=== PATIENT | male | born 1950 | race Caucasian/White ===

== ENCOUNTER 2022-11-16 11:53 | Outpatient (CLI) | payer MEDICARE, BC ==
[2022-11-16 14:58] LABS: BASOPHILS # (AUTO) 0.1 10^3/uL (0.0-0.1); BASOPHILS % (AUTO) 0.7 %; EOSINOPHILS # (AUTO) 0.4 10^3/uL (0.0-0.7); HCT - HEMATOCRIT 49.1 % (42.0-52.0); HGB - HEMOGLOBIN 16.3 g/dL (14.0-18.0); LYMPHOCYTES # (AUTO) 3.3 10^3/uL (1.5-3.5); LYMPHOCYTES % (AUTO) 26.5 %; MEAN CORPUSCULAR HEMOGLOBIN 32.3 pg (27.0-31.0); MEAN CORPUSCULAR HGB CONC 33.2 g/dL (32.0-36.0); MEAN CORPUSCULAR VOLUME 97.2 fL (80.0-94.0); MONOCYTES # (AUTO) 1.2 10^3/uL (0.0-1.0); MONOCYTES % (AUTO) 9.7 %; NEUTROPHILS # (AUTO) 7.5 10^3/uL (1.5-6.6); NEUTROPHILS % (AUTO) 59.6 %; PLT - PLATELET COUNT 320 10^3/uL (130-450); RED BLOOD COUNT 5.05 10^6/uL (4.70-6.10); RED CELL DISTRIBUTION WIDTH 13.6 % (12.0-15.0); WHITE BLOOD COUNT 12.5 x10^3/uL (4.8-10.8)
[2022-11-16 15:27] LABS: ALBUMIN 3.7 g/dL (3.2-5.5); ALBUMIN/GLOBULIN RATIO 0.9 (1.0-2.2); ALKALINE PHOSPHATASE 63 IU/L (42-121); ALT ALANINE AMINOTRANSFERASE 22 IU/L (10-60); AST ASPARTATE AMINOTRANSFERASE 19 IU/L (10-42); BILIRUBIN,TOTAL 1.5 mg/dL (0.2-1.0); BUN - BLOOD UREA NITROGEN 13 mg/dL (6-20); CALCIUM 8.8 mg/dL (8.5-10.3); CARBON DIOXIDE - CO2 28 mmol/L (21-32); CHLORIDE 108 mmol/L (101-111); CHOL/HDL RATIO 3.2 (<5.0); CHOLESTEROL 132 mg/dL; CREATININE 0.7 mg/dL (0.6-1.2); GFR - MDRD 111 (>89); GLUCOSE 95 mg/dL (70-100); HDL CHOLESTEROL 41 mg/dL; LDL CHOLESTEROL,CALCULATED 46 mg/dL; LDL/HDL RATIO 1.1 (<3.6); POTASSIUM 3.9 mmol/L (3.5-5.0); SODIUM 140 mmol/L (135-145); TOTAL PROTEIN 7.9 g/dL (6.7-8.2); TRIGLYCERIDES 225 mg/dL; VLDL CHOLESTEROL 45 mg/dL
== END 2022-11-16 11:54 | disposition home or self-care (01) ==
LOC: LAB.S 11:53
PROVIDERS: ATTEND Nurse Practitioner Acute Care
DX: I10 Essential (primary) hypertension (principal); Z13.228 Encounter for screening for other metabolic disorders; Z13.220 Encounter for screening for lipoid disorders; Z12.5 Encounter for screening for malignant neoplasm of prostate; Z13.0 Encounter for screening for diseases of the blood and blood-forming organs and certain disorders involving the immune mechanism
CPT/HCPCS: 36415; 80053; 80061; 85025; G0103; 83721; 84153

== ENCOUNTER 2022-11-19 11:50 | Outpatient (CLI) | payer MEDICARE, BC ==
[2022-11-19 14:31] LABS: BASOPHILS # (AUTO) 0.1 10^3/uL (0.0-0.1); BASOPHILS % (AUTO) 0.8 %; EOSINOPHILS # (AUTO) 0.2 10^3/uL (0.0-0.7); EOSINOPHILS % (AUTO) 1.9 %; HCT - HEMATOCRIT 48.6 % (42.0-52.0); LYMPHOCYTES # (AUTO) 3.1 10^3/uL (1.5-3.5); MEAN CORPUSCULAR HEMOGLOBIN 31.9 pg (27.0-31.0); MEAN CORPUSCULAR HGB CONC 32.9 g/dL (32.0-36.0); MEAN PLATELET VOLUME 10.1 fL (7.4-11.4); MONOCYTES # (AUTO) 0.8 10^3/uL (0.0-1.0); MONOCYTES % (AUTO) 8.1 %; NEUTROPHILS % (AUTO) 58.8 %; PLT - PLATELET COUNT 313 10^3/uL (130-450); RED BLOOD COUNT 5.01 10^6/uL (4.70-6.10); RED CELL DISTRIBUTION WIDTH 13.5 % (12.0-15.0); WHITE BLOOD COUNT 10.2 x10^3/uL (4.8-10.8)
== END 2022-11-19 11:51 | disposition home or self-care (01) ==
LOC: LAB.S 11:50
PROVIDERS: ATTEND Nurse Practitioner Acute Care
DX: Z13.0 Encounter for screening for diseases of the blood and blood-forming organs and certain disorders involving the immune mechanism (principal)
CPT/HCPCS: 36415; 85025

== ENCOUNTER 2023-12-21 10:00 | Outpatient (CLI) | payer MEDICARE ==
[2023-12-21 15:09] LABS: BASOPHILS # (AUTO) 0.1 10^3/uL (0.0-0.1); BASOPHILS % (AUTO) 0.7 %; EOSINOPHILS # (AUTO) 0.3 10^3/uL (0.0-0.7); EOSINOPHILS % (AUTO) 1.9 %; HCT - HEMATOCRIT 48.8 % (42.0-52.0); HGB - HEMOGLOBIN 15.9 g/dL (14.0-18.0); LYMPHOCYTES # (AUTO) 2.7 10^3/uL (1.5-3.5); LYMPHOCYTES % (AUTO) 19.9 %; MEAN CORPUSCULAR HEMOGLOBIN 32.1 pg (27.0-31.0); MEAN CORPUSCULAR HGB CONC 32.6 g/dL (32.0-36.0); MEAN CORPUSCULAR VOLUME 98.4 fL (80.0-94.0); MONOCYTES # (AUTO) 1.2 10^3/uL (0.0-1.0); MONOCYTES % (AUTO) 8.7 %; NEUTROPHILS # (AUTO) 9.2 10^3/uL (1.5-6.6); NEUTROPHILS % (AUTO) 68.4 %; PLT - PLATELET COUNT 324 10^3/uL (130-450); RED BLOOD COUNT 4.96 10^6/uL (4.70-6.10); RED CELL DISTRIBUTION WIDTH 13.2 % (12.0-15.0); WHITE BLOOD COUNT 13.5 x10^3/uL (4.8-10.8)
[2023-12-21 15:43] LABS: ALBUMIN 4.1 g/dL (3.2-5.5); ALBUMIN/GLOBULIN RATIO 1.3 (1.0-2.2); ALKALINE PHOSPHATASE 64 IU/L (42-121); ALT ALANINE AMINOTRANSFERASE 20 IU/L (10-60); AST ASPARTATE AMINOTRANSFERASE 16 IU/L (10-42); BUN - BLOOD UREA NITROGEN 11 mg/dL (6-20); CALCIUM 9.3 mg/dL (8.5-10.3); CARBON DIOXIDE - CO2 27 mmol/L (21-32); CHLORIDE 106 mmol/L (101-111); CHOL/HDL RATIO 3.1 (<5.0); CHOLESTEROL 110 mg/dL; CREATININE 0.7 mg/dL (0.6-1.3); GFR - MDRD 111 (>89); GLUCOSE 97 mg/dL (74-104); HDL CHOLESTEROL 36 mg/dL; LDL CHOLESTEROL,CALCULATED 37 mg/dL; POTASSIUM 3.9 mmol/L (3.5-4.5); SODIUM 139 mmol/L (135-145); TOTAL PROTEIN 7.3 g/dL (6.4-8.9); TRIGLYCERIDES 184 mg/dL (48-352); VLDL CHOLESTEROL 37 mg/dL
== END 2023-12-21 10:01 | disposition home or self-care (01) ==
LOC: LAB.S 10:00
PROVIDERS: ATTEND Nurse Practitioner Acute Care
DX: E78.5 Hyperlipidemia, unspecified (principal); Z12.5 Encounter for screening for malignant neoplasm of prostate
CPT/HCPCS: 36415; 80053; 80061; 85025; G0103; 83721; 84153

== ENCOUNTER 2024-02-09 09:25 | Outpatient (CLI) | payer MEDICARE ==
--- NOTE | 2024-02-09 13:30 | CT Report ---
PROCEDURE: CT temporal bone without contrast INDICATIONS: 73-year-old male with pulsatile tinnitus COMPARISON: None. TECHNIQUE: Helical axial CT of the temporal bones was obtained without contrast and reformatted in m ultiple planes. Radiation dose reduction was achieved using automated exposure control and adjustmen t of mA and/or kV according to patient size FINDINGS: Right Temporal Bone: External auditory canal: Patent without debris. Scutum is sharp. Ossicular chain and middle ear: Ossicular chain intact. Prussak space and sinus tympani are clear. Oval and round window niche are clear. Tegmen tympani covers both the middle and inner ear without erosions. Inner ear otic capsule: Cochlea, semicircular canals, and vestibular capsules are appropriately form ed and covered. Normal bony mineralization noted without lytic foci. Vestibular and cochlear aquedu cts unremarkable. Facial nerve canal: Unremarkable. Internal auditory canal: Well-defined without expansion or erosion. Carotid canal and jugular bulb: Well defined. No high-riding jugular bulb. Mastoid air cells: Clear. Aditus ad antrum unremarkable. Tegmen mastoideum intact. Temporomandibular joint: Unremarkable Left Temporal Bone: External auditory canal: Minimal debris in the internal auditory canal noted. No osseous remodeling. Ossicular chain and middle ear: Ossicular chain intact. Prussak space and sinus tympani are clear. Oval and round window niche are clear. Tegmen tympani covers both the middle and inner ear without erosions. Inner ear otic capsule: Cochlea, semicircular canals, and vestibular capsules are appropriately form ed and covered. Normal bony mineralization noted without lytic foci. Vestibular and cochlear aquedu cts unremarkable. Facial nerve canal: Unremarkable. Internal auditory canal: Well-defined without expansion or erosion. Carotid canal and jugular bulb: Well defined. No high-riding jugular bulb. Mastoid air cells: Clear. Aditus ad antrum unremarkable. Tegmen mastoideum intact. Temporomandibular joint: Unremarkable IMPRESSION: Unremarkable CT of the temporal bones Reviewed by: Giorgio Chawla MD on 02/09/2024 12:29 PM TIA Approved by: Giorgio Chawla MD on 02/09/2024 12:29 PM [facility] Station ID: [id number]
--- NOTE | 2024-02-09 14:45 | CT Report ---
PROCEDURE: Lung Cancer Screen INDICATIONS: LUNG CA SCREENING, PULSATILE TINNITUS TECHNIQUE: A CT scan of the chest was performed. Intravenous contrast media was not administered. Images were re corded and evaluated at appropriate window settings. Reformats: axial MIP of the chest, coronal and s agittal. For radiation dose reduction, the following was used: automated exposure control, adjustment of mA and/or kV according to patient size. COMPARISON: None. FINDINGS: Image quality: Excellent. Prior cancer history: Unknown Lungs and pleura: No pleural effusions. No pneumothorax. Mild centrilobular and paraseptal emphysema . No suspicious nodule, mass, groundglass opacity, or consolidation. Central and peripheral airways a re normal caliber without bronchial wall thickening or bronchiectasis. Mediastinum: Heart size is normal with mild coronary artery calcification. No pericardial effusion. N o large vessel abnormality. There is a borderline AP window lymph node measuring 1 cm in short axis, nonspecific in isolation. No other enlarged mediastinal or hilar lymph nodes. No anterior or posterio r mediastinal mass. Normal esophagus without hiatal hernia Chest wall and lower neck: No suspicious chest wall mass. Normal CT appearance of the thyroid gland. No axillary or supraclavicular adenopathy by size. Bones: No suspicious bone lesion. Mid thoracic spine bridging endplate osteophytes. Upper Abdomen: Lobulated renal margins and an exophytic cystic structure arising from the left kidney , indeterminant. There is diverticular disease throughout the visible colon. Visible portions of the upper abdomen are otherwise normal. IMPRESSION: Lung RAD: 1 - Negative. Recommendation: Continue annual screening in 12 Months with LDCT Non-Lung Significant Findings: Mass - Kidneys. Consider dedicated CT of the abdomen/pelvis with contr ast. Reviewed by: Farzaneh Corcoran MD on 02/09/2024 2:44 PM PDT Approved by: Farzaneh Corcoran MD on 02/09/2024 2:44 PM PDT Station ID: [id number]
== END 2024-02-09 09:26 | disposition home or self-care (01) ==
LOC: DI 09:25
PROVIDERS: ATTEND Nurse Practitioner Acute Care
DX: Z12.2 Encounter for screening for malignant neoplasm of respiratory organs (principal); H93.A3 Pulsatile tinnitus, bilateral; N28.89 Other specified disorders of kidney and ureter

== ENCOUNTER 2024-02-28 07:11 | Outpatient (CLI) | payer MEDICARE ==
[2024-02-28] MEDS ORDERED: DIATRIZOATE MEGLU/DIATRIZO SOD 30 ML BOTTLE PO ONE (07:21)
[2024-02-28] MEDS ORDERED: iohexoL-300 100 ML VIAL ONE (07:21)
[2024-02-28 08:02] LABS: CREATININE 0.8 mg/dL (0.6-1.3)
[2024-02-28] MEDS: iohexoL-300 100 ML VIAL IVP ONE (14:53)
[2024-02-28] MEDS: DIATRIZOATE MEGLU/DIATRIZO SOD 30 ML BOTTLE PO ONE (14:54)
--- NOTE | 2024-02-28 22:33 | CT Report ---
PROCEDURE: Abdomen/Pelvis W INDICATIONS: RENAL CYST CONTRAST: Omni 300 100ml TECHNIQUE: After the administration of intravenous contrast, a CT scan of the abdomen and pelvis was performed. Images were recorded and evaluated at appropriate window settings. Reformats: coronal and sagittal. F or radiation dose reduction, the following was used: automated exposure control, adjustment of mA and /or kV according to patient size. COMPARISON: CT chest 02/09/2024. FINDINGS: Image quality: Diagnostic. Lower chest: Unremarkable. Liver: No solid mass. Gallbladder: No radiopaque stones or wall thickening. Biliary tree: No intrahepatic or extrahepatic dilation, accounting for age. Spleen: No splenomegaly. Pancreas: No pancreatic ductal dilation. Adrenals: No adrenal nodule. Kidneys and ureters: Nonobstructing punctate 2 mm calculus in the left inferior pole. No hydronephros is. Bilateral subcentimeter cortical hypodensities, probable cysts. Left exophytic 1.9 cm simple cyst . No renal cystic lesion which requires follow up. No solid mass. Stomach, bowel and peritoneum: No gastric or small bowel dilation. No abnormal wall thickening. No pa thologic free fluid. Extensive colonic diverticulosis without acute inflammation. Lymph nodes: No central or retroperitoneal adenopathy. Vessels: No infrarenal aortic aneurysm. Patent portal vein. PELVIS Reproductive organs: Unremarkable. Bladder: No abnormal wall thickening, accounting for underdistention. Pelvic lymph nodes: No pelvic adenopathy by size criteria. Bones: No aggressive osseous abnormality. Other: No significant ventral or inguinal hernia. IMPRESSION: Left renal exophytic simple appearing cyst measuring 1.9 cm. No imaging follow-up required. Additional bilateral subcentimeter cortical renal hypodensities are too small to characterize, statis tically favored to represent cysts versus hemangiomas. Nonobstructing left inferior pole 2 mm renal calculus. No hydronephrosis. Extensive diverticulosis without CT evidence of acute diverticulitis. Reviewed by: Shanita Jimenez MD, PhD on 02/28/2024 9:31 PM TIA Approved by: Shanita Jimenez MD, PhD on 02/28/2024 9:31 PM TIA Station ID: [id number]
== END 2024-02-28 07:12 | disposition home or self-care (01) ==
LOC: DI 07:11
PROVIDERS: ATTEND Nurse Practitioner Acute Care
DX: N28.1 Cyst of kidney, acquired (principal); N20.0 Calculus of kidney; K57.30 Diverticulosis of large intestine without perforation or abscess without bleeding
CPT/HCPCS: 36415; 74177; 82565; Q9963; Q9967